=== PATIENT | female | born 1995 | race Caucasian/White ===

== ENCOUNTER 2017-01-03 19:41 | Emergency (ER) | payer OTHER ==
[~2017-01-03] VITALS: Ht 154.9 cm; Wt 73.8 kg
[~2017-01-03 19:41] MED LIST: AZIT250T PO
[2017-01-03 19:49] VITALS: TEMP 36.6; Ht 154.9 cm; Wt 73.8 kg
[2017-01-03] MEDS ORDERED: SODIUM CHLORIDE 0.9% 1000ML 2,000 ML IV STA (20:55)
[2017-01-03 21:08] LABS: BASO % 0.3 %; BASO ABS # 0.03 K/uL (0-0.2); COMPLETE YES; EOS % 0.9 %; HEMATOCRIT 37.3 % (37-47); IG% 0.2 %; LYMPH % 33.1 %; LYMPH ABS # 3.27 K/uL (1.2-3.4); MEAN CORPUSCULAR HEMOGLOBIN 30.4 pg (25-34); MEAN CORPUSCULAR HGB CONC 34.6 g/dl (32-36); MEAN PLATELET VOLUME 11.4 fL (7.4-10.4); MONO % 6.2 %; NEUT % 59.3 %; PLATELET COUNT 259 K/uL (130-400); RED BLOOD COUNT 4.24 M/uL (4.2-5.4); WHITE BLOOD COUNT 9.87 K/uL (4.8-10.8)
[2017-01-03 21:28] LABS: ALT/SGPT 21 U/L (12-78); BLOOD UREA NITROGEN 11 mg/dl (7-18); BUN/CREATININE RATIO 15.1 (10-20); CALCIUM 8.8 mg/dl (8.5-10.1); CARBON DIOXIDE 24 mmol/L (21-32); CHLORIDE 107 mmol/L (98-107); GLUCOSE 99 mg/dl (70-99); POTASSIUM 3.9 mmol/L (3.5-5.1); SODIUM 138 mmol/L (136-145)
[2017-01-03 21:30] LABS: PREG INTERNAL NEGATIVE QC NEG CLEAR BACKGROUND; PREG INTERNAL POSITIVE QC POS CONTROL LINE
[2017-01-03 21:31] LABS: ALKALINE PHOSPHATASE 46 U/L (45-117); AST/SGOT 19 U/L (15-37)
[2017-01-03] MEDS ORDERED: ONDANSETRON 8 MG/54 ML D5W IV STA (21:37)
[2017-01-03] MEDS ORDERED: OPTIRAY 320 IV PRN (21:45)
[2017-01-03 22:16] LABS: MANUAL MICROSCOPIC REQUIRED? NO; REVIEW REQ? NO; URINE APPEARANCE CLEAR (CLEAR); URINE BILIRUBIN NEG (NEG); URINE COLOR DK YELLOW; URINE NITRITE NEG (NEG); URINE PH 5.5 (4.5-7.5); URINE SPECIFIC GRAVITY 1.022 (1.000-1.030); UROBILINOGEN NEG (NEG); ZZUR CULT IF INDIC CLEAN CATCH NO
--- NOTE | 2017-01-03 22:17 | DIAGNOSTIC IMAGING REPORT ---
CT OF THE ABDOMEN AND PELVIS WITH CONTRAST CLINICAL HISTORY: Right lower quadrant abdominal pain and vomiting. COMPARISON STUDY: None. TECHNIQUE: Following IV administration of 116 mL of Optiray-320, axial images of the abdomen and pelvis were obtained from the lung bases to the proximal femurs. Images were reviewed in the axial, sagittal, and coronal planes. IV contrast was administered without complication. CT DOSE: 323.79 mGy.cm FINDINGS: Lung bases are clear. The liver, spleen, adrenal glands, kidneys and pancreas are normal. There is no biliary or pancreatic ductal dilatation. There is no peripancreatic or pericholecystic infiltration. There is no hydronephrosis. The caliber and wall thickness of small and large bowel are normal. The appendix is normal. No enlarged lymph nodes are present. Note is made of a 3.7 cm right ovarian lesion which measures just above water attenuation. Skeletal structures are unremarkable. IMPRESSION: 1. Normal appendix. 2. 3.7 cm right ovarian lesion which measures slightly greater than water attenuation. This may reflect a hemorrhagic cyst. Electronically signed by: Anthony Monroy M.D. 01/03/2017 10:16 PM Dictated Date/Time: 01/03/2017 10:11 PM
[2017-01-03] MEDS ORDERED: BCPILLS PO (23:04)
[2017-01-03 23:36] VITALS: BP 113/64; PULSE 87; O2SAT 100
[2017-01-04] MEDS ORDERED: ONDANSETRON HOME PACK 4MG OD TAB PO ONE (00:15)
--- NOTE | 2017-01-04 01:04 | EMERGENCY ROOM VISIT NOTE ---
History Report prepared by Sandra: Anderson Haro Under the Supervision of: Dr. Rod Marks M.D. First contact with patient: 20:55 Chief Complaint: ABDOMINAL PAIN Stated Complaint: SHARP PAIN IN LOWER STOMACH,THROWING UP Nursing Triage Summary: c/o sharp right abd pain. n/v/d over the last few days. "I haven't been able to eat because I've felt bloated". Also reports urinary frequency History of Present Illness The patient is a 21 year old female who presents to the Emergency Room with complaints of constant right lower abdominal pain and vomiting for the past few days. She currently rates her discomfort as a 7/10 in severity. The patient states that she went to dinner at [facility], and afterwards the symptoms started. The patient states that she has had diarrhea for the past four days, and she vomited today which is uncommon for her. The patient denies any blood in the vomit or stool. The patient states that no one around her is sick, and she states that she has not travelled anywhere recently. Additionally, she states that she has been having urinary frequency. Pt denies LOC, headache, fevers, chills, diaphoresis, visual changes, neck pain, chest pain, breathing difficulties, back pain, melena, numbness, weakness, lymphadenopathy, rash, or other complaints. Source of History: patient Onset: few days ago Position: abdomen (RLQ) Symptom Intensity: 7/10 Timing: constant (7/10) Associated Symptoms: + abdominal pain, + diarrhea, + nausea, + urinary symptoms, + vomiting Review of Systems See HPI for pertinent positives and negatives. A total of ten systems were reviewed and were otherwise negative. Past Medical & Surgical Medical Problems: (1) Giant cell tumor Family History Hypertension Seizures Social History Smoking Status: Never Smoker Alcohol Use: occasionally Marital Status: single Occupation Status: [employer] student Current/Historical Medications Scheduled Control Pills ( Control Pills), 1 TAB PO DAILY Allergies Coded Allergies: No Known Allergies (Unverified , 09/03/16) Physical Exam Vital Signs Date Time Temp Pulse Resp B/P Pulse Ox O2 Delivery O2 Flow Rate FiO2 01/03/17 23:36 87 18 113/64 100 Room Air 01/03/17 19:49 36.6 85 16 115/77 98 Room Air Physical Exam GENERAL: Awake, alert, well-appearing, in no distress HENT: Normocephalic, atraumatic. Oropharynx unremarkable. EYES: Normal conjunctiva. Sclera non-icteric. NECK: Supple. No nuchal rigidity. FROM. No JVD. RESPIRATORY: Clear to auscultation. CARDIAC: Regular rate, normal rhythm. Extremities warm and well perfused. Pulses equal. ABDOMEN: Tenderness to percussion in the right lower quadrant as well as rebounding and guarding. Soft, non-distended. No rebound or guarding. No masses. Positive Rovsing RECTAL: Deferred. MUSCULOSKELETAL: Chest examination reveals no tenderness. The back is symmetrical on inspection without obvious abnormality. There is no CVA tenderness to palpation. No joint edema. LOWER EXTREMITIES: Calves are equal size bilaterally and non-tender. No edema. No discoloration. NEURO: Normal sensorium. No sensory or motor deficits noted. SKIN: No rash or jaundice noted. Medical Decision & Procedures Laboratory Results 01/03/17 20:56 Red Blood Count 4.24, Mean Corpuscular Volume 88.0, Mean Corpuscular Hemoglobin 30.4, Mean Corpuscular Hemoglobin Concent 34.6, Mean Platelet Volume 11.4, Neutrophils (%) (Auto) 59.3, Lymphocytes (%) (Auto) 33.1, Monocytes (%) (Auto) 6.2, Eosinophils (%) (Auto) 0.9, Basophils (%) (Auto) 0.3, Neutrophils # (Auto) 5.85, Lymphocytes # (Auto) 3.27, Monocytes # (Auto) 0.61, Eosinophils # (Auto) 0.09, Basophils # (Auto) 0.03 01/03/17 20:56 Test 01/03/17 20:45 01/03/17 20:56 Urine Color DK YELLOW Urine Appearance CLEAR (CLEAR) Urine pH 5.5 (4.5-7.5) Urine Specific [place] 1.022 (1.000-1.030) Urine Protein NEG (NEG) Urine Glucose (UA) NEG (NEG) Urine Ketones TRACE (NEG) Urine Occult Blood NEG (NEG) Urine Nitrite NEG (NEG) Urine Bilirubin NEG (NEG) Urine Urobilinogen NEG (NEG) Urine Leukocyte Esterase TRACE (NEG) Urine WBC (Auto) 1-5 /hpf (0-5) Urine RBC (Auto) 0-4 /hpf (0-4) Urine Hyaline Casts (Auto) 1-5 /lpf (0-5) Urine Epithelial Cells (Auto) 10-20 /lpf (0-5) Urine Bacteria (Auto) NEG (NEG) White Blood Count 9.87 K/uL (4.8-10.8) Red Blood Count 4.24 M/uL (4.2-5.4) Hemoglobin 12.9 g/dL (12.0-16.0) Hematocrit 37.3 % (37-47) Mean Corpuscular Volume 88.0 fL (80-100) Mean Corpuscular Hemoglobin 30.4 pg (25-34) Mean Corpuscular Hemoglobin Concent 34.6 g/dl (32-36) Platelet Count 259 K/uL (130-400) Mean Platelet Volume 11.4 fL (7.4-10.4) Neutrophils (%) (Auto) 59.3 % Lymphocytes (%) (Auto) 33.1 % Monocytes (%) (Auto) 6.2 % Eosinophils (%) (Auto) 0.9 % Basophils (%) (Auto) 0.3 % Neutrophils # (Auto) 5.85 K/uL (1.4-6.5) Lymphocytes # (Auto) 3.27 K/uL (1.2-3.4) Monocytes # (Auto) 0.61 K/uL (0.11-0.59) Eosinophils # (Auto) 0.09 K/uL (0-0.5) Basophils # (Auto) 0.03 K/uL (0-0.2) RDW Standard Deviation 39.8 fL (36.4-46.3) RDW Coefficient of Variation 12.4 % (11.5-14.5) Immature Granulocyte % (Auto) 0.2 % Immature Granulocyte # (Auto) 0.02 K/uL (0.00-0.02) Anion Gap 7.0 mmol/L (3-11) Est Creatinine Clear Calc Drug Dose 115.8 ml/min Estimated GFR () 142.5 Estimated GFR (Non- 123.0 BUN/Creatinine Ratio 15.1 (10-20) Calcium Level 8.8 mg/dl (8.5-10.1) Total Bilirubin 0.2 mg/dl (0.2-1) Direct Bilirubin < 0.1 mg/dl (0-0.2) Aspartate Amino Transf (AST/SGOT) 19 U/L (15-37) Alanine Aminotransferase (ALT/SGPT) 21 U/L (12-78) Alkaline Phosphatase 46 U/L (45-117) Total Protein 7.7 gm/dl (6.4-8.2) Albumin 3.4 gm/dl (3.4-5.0) Lipase 156 U/L (73-393) Human Chorionic Gonadotropin, Qual NEG (NEG) Laboratory results reviewed by me Medications Administered Medications (Trade) Dose Ordered Sig/Vianey Route Start Time Stop Time Status Last Admin Dose Admin Sodium Chloride (Nss 1000ml) 2,000 ml @ 999 mls/hr Q2H1M STAT IV 01/03/17 20:55 01/03/17 22:55 DC 01/03/17 20:55 999 MLS/HR Ondansetron HCl (Zofran 8mg Iv) 8 mg NOW STAT IV 01/03/17 21:37 01/03/17 21:38 DC 01/03/17 21:37 8 MG Ondansetron HCl (ZOFRAN ODT 4MG Home Pack) 1 homepack UD ONCE PO 01/04/17 00:15 01/04/17 00:16 DC 01/04/17 00:19 1 HOMEPACK ED Course 5: The patient was evaluated in room B5. A complete history and physical exam was performed. 0: The patient was sent to CT imaging for further evaluation. 4: Reassessed the patient. She is doing well. CT imaging did not reveal any evidence of appendicitis. The patient will be sent to ultrasound imaging to evaluate her ovarian cyst. 5: Patient was reassessed. She is doing well. Symptoms have improved without any analgesia. I discussed conservative management with her. She was in agreement. Zofran home pack ordered. The patient was discharged in stable condition. Medical Decision Triage Nursing notes reviewed. The patient's presentation and history were concerning for nausea, vomiting, diarrhea, and abdominal pain. Etiologies such as appendicitis, diverticulitis, obstruction, inflammatory bowel disease, renal colic, PUD, biliary pathology, pancreatitis, mesenteric ischemia, aortic pathology, infections, genitourinary, UTI, perforated viscus, as well as others were entertained. The patient was evaluated. She was hydrated. She was given Zofran. She declined analgesia. On examination she had a significant tenderness in the right lower quadrant. I discussed further imaging. Her CBC, chemistry panel, urinalysis and test were unremarkable. The patient underwent CT imaging and this revealed a sizable ovarian cyst in the right lower quadrant, right next to the appendix. The CT questioned possible hemorrhagic nature of the cyst. The patient underwent ultrasound imaging. She revealed a 4 cm simple cyst with flow demonstrated. There was no significant findings otherwise. On reassessment the patient was feeling well. Her symptoms had decreased significantly. I discussed conservative management with her. She notes that she is about 2 weeks into her cycle. I suspect that this cyst will resolve on its own. If she worsens in any way, gets lightheaded, has increasing pain, or other problems she will come back to the emergency department for reevaluation. She will follow-up with [facility]. By the evaluation outlined above other emergent etiologies such as those listed in the differential, as well as others, were deemed relatively unlikely. The patient was informed about the findings as listed above. All questions were answered and she was pleased with the treatment. Return instructions were outlined and the patient was discharged in stable condition. The patient was referred to [facility] for follow-up for a recheck of the current condition. The chart was completed utilizing [employer] voice recognition software. Grammatical errors, random word insertions, pronoun errors, and incomplete sentences are an occasional consequence of this system due to software limitations, ambient noise, and hardware issues. Any formal questions or concerns about the content, text, or information contained within the body of this dictation should be directly addressed to the physician for clarification. Impression Primary Impression: Nausea vomiting and diarrhea Additional Impressions: Right ovarian cyst Right lower quadrant abdominal pain Scribe Attestation The scribe's documentation has been prepared under my direction and personally reviewed by me in its entirety. I confirm that the note above accurately reflects all work, treatment, procedures, and medical decision making performed by me. Departure Information Dispostion Home / Self-Care Referrals [facility] (PCP) Patient Instructions My [facility] Problem Qualifiers
--- NOTE | 2017-01-04 06:28 | DIAGNOSTIC IMAGING REPORT ---
PELVIC ULTRASOUND CLINICAL HISTORY: Right lower quadrant pain. Right ovarian cyst by CT. COMPARISON STUDY: CT of the abdomen and pelvis January 03, 2017. TECHNIQUE: Transabdominal and transvaginal sonography of the pelvis was performed. FINDINGS: The uterus measures 8.6 x 3.9 x 5.2 cm. The endometrium measures 1 cm in thickness. The right ovary measures 4.2 x 3.6 x 3.1 cm and contains a 4.2 cm simple cyst. This corresponds to the abnormality on prior CT. The left ovary measures 2.6 x 1.5 x 1.9 cm. Color flow is identified within each ovary. Trace fluid within the pelvis is likely physiologic. IMPRESSION: 1. 4.2 cm simple right ovarian cyst. 2. No sonographic evidence of ovarian torsion. 3. Trace fluid within the pelvis which is likely physiologic. Electronically signed by: Anthony Monroy M.D. 01/04/2017 6:27 AM Dictated Date/Time: 01/04/2017 6:25 AM
== END 2017-01-04 00:20 | disposition home or self-care (01) ==
LOC: C.EDB 19:42
DX: R10.31 Right lower quadrant pain (principal); N83.201 Unspecified ovarian cyst, right side; R11.2 Nausea with vomiting, unspecified; R19.7 Diarrhea, unspecified; Z86.018 Personal history of other benign neoplasm; Z82.49 Family history of ischemic heart disease and other diseases of the circulatory system; Z82.0 Family history of epilepsy and other diseases of the nervous system